=== PATIENT | female | born 1990 | race African-American/Black ===

== ENCOUNTER 2018-05-05 07:50 | Emergency (ER) | payer SELFPAY ==
[~2018-05-05] VITALS: Ht 152.4 cm; Wt 58.0 kg
[~2018-05-05 07:50] MED LIST: no meds
[2018-05-05] MEDS ORDERED: KETOROLAC 60MG/2ML VIAL IM STA (09:02)
[2018-05-05] MEDS ORDERED: BACITRACIN ZINC OINT UDPKT TOP ONE (09:15)
[2018-05-05] MEDS ORDERED: LIDOCAINE HCL/PF 1% 10 MG/ML 5ML VIAL IJ ONE (09:15)
[2018-05-05 09:50] LABS: CLARITY URINE CLOUDY (CLEAR); COLOR URINE YELLOW (YELLOW); KETONES URINE NEGATIVE (NEGATIVE); LEUKOCYTE ESTERASE URINE TRACE (NEGATIVE); NITRITE URINE NEGATIVE (NEGATIVE); OCCULT BLOOD URINE NEGATIVE (NEGATIVE); PROTEIN URINE NEGATIVE (NEGATIVE); UROBILINOGEN URINE 0.2 E.U./dL (0.2-1.0)
[2018-05-05 10:20] VITALS: BP 145/84
[2018-05-10 04:18] LABS: CHLAMYDIA TRACHOMATIS NAA Negative (Negative); NEISSERIA GONORRHOEAE NAA Negative (Negative)
== END 2018-05-05 10:21 | disposition home or self-care (01) ==
LOC: ER 08:28
DX: N76.4 Abscess of vulva (principal); F12.10 Cannabis abuse, uncomplicated
CPT/HCPCS: 81003; 81025; 87491; 87591; 96372; 99283; J1885; J3490

== ENCOUNTER 2018-07-15 13:55 | Emergency (ER) | payer SELFPAY ==
[~2018-07-15] VITALS: Ht 152.4 cm; Wt 58.0 kg
[2018-07-15 14:14] VITALS: BP 154/106
== END 2018-07-15 19:31 | disposition home or self-care (01) ==
LOC: ER 14:13
DX: Z32.02 Encounter for pregnancy test, result negative (principal)
CPT/HCPCS: 36415; 81025; 84702; 99283

== ENCOUNTER 2021-07-04 02:41 | Emergency (ER) | payer MEDICAID ==
[~2021-07-04] VITALS: Ht 152.4 cm; Wt 50.0 kg
[2021-07-04 02:46] VITALS: BP 144/95
== END 2021-07-04 04:18 | disposition home or self-care (01) ==
LOC: ER 02:41
DX: F60.0 Paranoid personality disorder (principal); I10 Essential (primary) hypertension; F12.10 Cannabis abuse, uncomplicated; Z53.29 Procedure and treatment not carried out because of patient's decision for other reasons; Z98.890 Other specified postprocedural states
CPT/HCPCS: 99281

== ENCOUNTER 2021-07-05 06:16 | Emergency (ER) | payer MEDICAID ==
[~2021-07-05] VITALS: Ht 160 cm; Wt 59.0 kg
[2021-07-05 06:25] VITALS: BP 161/113
[2021-07-05] MEDS ORDERED: ZIPRASIDONE MESYLATE 20MG/VIAL IM ONE (07:45)
[2021-07-05] MEDS ORDERED: DIPHENHYDRAMINE 50MG/ML VIAL IM ONE (07:45)
== END 2021-07-05 07:56 | disposition left against medical advice (07) ==
LOC: ER 06:16
DX: F29 Unspecified psychosis not due to a substance or known physiological condition (principal); F12.10 Cannabis abuse, uncomplicated
CPT/HCPCS: 99283

== ENCOUNTER 2024-03-13 09:41 | Emergency (ER) | payer MEDICAID, OTHER ==
[~2024-03-13] VITALS: Ht 152.4 cm; Wt 64.0 kg
[2024-03-13 09:50] VITALS: O2SAT 100
[2024-03-13] MEDS ORDERED: IBUP-2029 MT (10:52)
[2024-03-13] MEDS ORDERED: SULF1TAB48 MT (10:52)
[2024-03-13 11:28] VITALS: BP 118/78; PULSE 88; RESP 16; TEMP 37.11408; O2SAT 100
== END 2024-03-13 11:29 | disposition home or self-care (01) ==
LOC: ER 10:34
DX: L05.01 Pilonidal cyst with abscess (principal); M53.3 Sacrococcygeal disorders, not elsewhere classified; Z98.890 Other specified postprocedural states; Z79.899 Other long term (current) drug therapy
CPT/HCPCS: 99283

== ENCOUNTER 2024-03-16 11:11 | Emergency (ER) | payer MEDICAID ==
[~2024-03-16] VITALS: Ht 154.9 cm; Wt 60.0 kg
[~2024-03-16 11:11] MED LIST changes: +IBUP-2029 MT; +SULF1TAB48 MT
[2024-03-16 11:19] VITALS: O2SAT 100
[2024-03-16] MEDS ORDERED: LIDOCAINE HCL 1% 20ML VIAL INFIL ONE (14:00)
[2024-03-16] MEDS ORDERED: SULF1TAB48 MT (14:02)
[2024-03-16 14:42] VITALS: BP 158/100; PULSE 88; RESP 18; TEMP 37.00296; O2SAT 100
== END 2024-03-16 14:44 | disposition home or self-care (01) ==
LOC: ER 11:11
DX: L05.01 Pilonidal cyst with abscess (principal); F12.90 Cannabis use, unspecified, uncomplicated; I10 Essential (primary) hypertension; Z98.890 Other specified postprocedural states
CPT/HCPCS: 10080; 99283; J3490

== ENCOUNTER 2024-04-11 10:35 | Emergency (ER) | payer MEDICAID ==
[~2024-04-11] VITALS: Ht 152.4 cm; Wt 58.0 kg
[2024-04-11 10:39] VITALS: O2SAT 100
[2024-04-11] MEDS: DEXAMETHASONE 2MG TABLET PO ONE (11:26)
[2024-04-11] MEDS: LORATADINE 10MG TABLET PO SCH (11:26)
[2024-04-11 11:32] VITALS: BP 116/76; PULSE 70; RESP 16; TEMP 36.94740; O2SAT 99
== END 2024-04-11 11:44 | disposition home or self-care (01) ==
LOC: ER 10:35
DX: R21 Rash and other nonspecific skin eruption (principal); I10 Essential (primary) hypertension
CPT/HCPCS: 99283; J8540

== ENCOUNTER 2025-01-10 05:09 | Emergency (ER) | payer MEDICAID ==
[~2025-01-10] VITALS: Ht 160 cm; Wt 68.7 kg
[2025-01-10 05:17] VITALS: TEMP 37; O2SAT 98
[2025-01-10] MEDS: LISINOPRIL 20MG TABLET PO ONE (05:35)
[2025-01-10 05:36] VITALS: BP 173/120; PULSE 77; RESP 18; O2SAT 100
== END 2025-01-10 06:07 | disposition home or self-care (01) ==
LOC: ER 05:09
DX: R21 Rash and other nonspecific skin eruption (principal); I10 Essential (primary) hypertension; F12.90 Cannabis use, unspecified, uncomplicated; G47.00 Insomnia, unspecified; Z79.899 Other long term (current) drug therapy; Z98.890 Other specified postprocedural states
CPT/HCPCS: 99283